=== PATIENT | female | born 1990 | race Caucasian/White ===

== ENCOUNTER 2016-12-14 15:13 | Emergency (ER) | payer SELFPAY ==
[~2016-12-14] VITALS: Ht 165.1 cm; Wt 60.8 kg
--- NOTE | 2016-12-14 16:57 | NUR ---
Patient discharged to home in stable conditon. Written and verbal after care instructions given. Patient verbalizes understanding of instructions. Stressed follow up with pmd/ortho, pt was given referrals by Dr. Rodriguez.
== END 2016-12-14 16:59 | disposition home or self-care (01) ==
LOC: ER 15:13
DX: M22.42 Chondromalacia patellae, left knee (principal); S93.402A Sprain of unspecified ligament of left ankle, initial encounter; W01.0XXA Fall on same level from slipping, tripping and stumbling without subsequent striking against object, initial encounter; Y93.89 Activity, other specified; Y99.8 Other external cause status; Y92.511 Restaurant or cafe as the place of occurrence of the external cause
CPT/HCPCS: 73610; A4663